=== PATIENT | male | born 2005 | race Caucasian/White ===

== ENCOUNTER 2024-02-23 07:37 | Emergency (ER) | payer MEDICAID ==
[~2024-02-23] VITALS: Ht 175.3 cm; Wt 65.8 kg
[2024-02-23 07:41] VITALS: BP_SYST 124; PULSE 58; RESP 18; TEMP 98.3; O2SAT 98
[2024-02-23] MEDS ORDERED: CARB15DR93 EACH EAR (08:18)
[2024-02-23] MEDS ORDERED: CORTEARS LEFT EAR (08:20)
[2024-02-23 08:30] VITALS: BP_SYST 124; PULSE 58; RESP 18; TEMP 98.3; O2SAT 98
== END 2024-02-23 08:31 | disposition home or self-care (01) ==
LOC: SED 07:37
DX: H61.23 Impacted cerumen, bilateral (principal); H60.92 Unspecified otitis externa, left ear; Z79.899 Other long term (current) drug therapy; Z79.2 Long term (current) use of antibiotics
CPT/HCPCS: 99284